=== PATIENT | female | born 1960 | race Caucasian/White ===

== ENCOUNTER 2018-05-28 09:49 | Emergency (ER) | payer OTHER ==
[~2018-05-28] VITALS: Ht 160 cm; Wt 92.7 kg
[2018-05-28] MEDS ORDERED: EXCEDRIN EXTRA1 EACH PO (09:58)
[2018-05-28] MEDS ORDERED: COZAAR100 MG PO (09:59)
[2018-05-28] MEDS ORDERED: ARMOUR THYROID PO (09:59)
[2018-05-28] MEDS ORDERED: VENLAFAXINE HYD75 MG PO (09:59)
[2018-05-28] MEDS ORDERED: ULTRAM50 M1 PO (09:59)
[2018-05-28 10:50] LABS: EOS # 0.1 (0.04-0.40); EOS % 1.3 % (1.0-5.0); HEMOGLOBIN 14.3 g/dL (12.5-16.0); LYMPH# 1.1 (1.50-4.00); MEAN CELL VOLUME 82 fl (78-100); MEAN CORPUSCULAR HEMOGLOBIN 28 pg (27-31); MEAN CORPUSCULAR HGB CONC 34 g/dL (33-37); MONO # 0.9 (0.20-0.80); NEU # 6.4 (1.40-6.50); PLATELET COUNT 237 K/mm3 (130-400); RED BLOOD COUNT 5.12 M/mm3 (4.10-5.30); RED CELL DISTRIBUTION WIDTH 13.7 % (11.5-14.5); WHITE BLOOD COUNT 8.5 K/mm3 (4.8-10.8)
[2018-05-28 10:59] LABS: ALBUMIN 4.3 g/dL (3.5-5.0); CALCIUM 9.8 mg/dL (8.4-10.2); POTASSIUM 4.2 mmol/L (3.6-5.0); TOTAL BILIRUBIN 0.5 mg/dL (0.2-1.3); TOTAL PROTEIN 7.2 g/dL (6.3-8.2)
[2018-05-28] MEDS ORDERED: KETOROLAC10 MG PO (11:53)
[2018-05-28] MEDS ORDERED: BACTRIM DS TAB1 EACH PO (11:53)
[2018-05-28 12:10] VITALS: BP 117/85
== END 2018-05-28 12:10 | disposition home or self-care (01) ==
LOC: ED 09:49
PROVIDERS: Nurse Practitioner Primary Care
DX: L03.213 Periorbital cellulitis (principal); I10 Essential (primary) hypertension; Z79.82 Long term (current) use of aspirin; Z79.899 Other long term (current) drug therapy
CPT/HCPCS: J1885; Q9967